=== PATIENT | female | born 1990 | race African-American/Black ===

== ENCOUNTER 2016-04-27 09:13 | Day surgery (SDC) | payer MEDICAID ==
[~2016-04-27] VITALS: Ht 154.9 cm; Wt 50.0 kg
[2016-04-27 10:08] LABS: HEMATOCRIT 33.4 % (36.0-48.0); HEMOGLOBIN 10.9 g/dL (12-16); MCH 26.3 pg (26.0-34.0); MCHC 32.6 g/dL (31.0-37.0); MCV 80.5 fL (80.0-100.0); MEAN PLATELET VOLUME 10.5 fL (7.4-10.4); RBC 4.15 10x6/uL (4.00-5.40); RDW 15.1 % (11.5-14.5); WBC 6.8 10x3/uL (4.8-10.8)
[2016-04-27] MEDS ORDERED: ZYRTEC10 MG PO (11:36)
[2016-04-27] MEDS ORDERED: FLUTICASONE PRO16 GM NASAL (11:37)
[2016-04-27 11:40] VITALS: BP 118/68; Ht 154.9 cm; Wt 50.0 kg
[2016-04-27 13:23] LABS: HCG SERUM NEGATIVE (NEGATIVE)
--- NOTE | 2016-04-27 19:23 | NUR ---
1600 C/O HEAD ACHE PAIN SCALE OF 6 , 1700 BREWER PAIN SCALE 3 PASS PAIN PILL
--- NOTE | 2016-04-30 14:56 | HP ---
PATIENT: PAULO LUNA MEDICAL RECORD: [id number] ACCOUNT: [id number] LOCATION:[facility] : 89 ADMISSION DATE: 04/27/16 HISTORY AND PHYSICAL EXAMINATION PREOPERATIVE HISTORY AND PHYSICAL HISTORY OF PRESENT ILLNESS: Ms. Luna is a 25-year-old female who has had significant problems with headache, pressure and sinusitis, has been found to have opacified right maxillary sinus and possibly chronic fungal sinusitis and polyps on the right side. She is being admitted for sinus surgery. PAST MEDICAL HISTORY: Otherwise negative. PAST SURGICAL HISTORY: None. CURRENT MEDICATIONS: Flonase and Zyrtec. ALLERGIES: No known drug allergies. PHYSICAL EXAMINATION: GENERAL: Healthy-appearing, developmentally normal. FACE: Normal, symmetric, no lesions. EYES: Sclerae and conjunctivae are normal. EARS: Canals and TMs are normal. NOSE: Normal anterior rhinoscopy. DIAGNOSTIC DATA: CT scan shows opacification and calcified material in the right maxillary sinus as well as polypoid tissue in the nasal cavity. IMPRESSION: Right chronic maxillary sinusitis and nasal polyposis. CT findings suggest possibly chronic fungal sinusitis, but there are other possibilities well. She is being admitted for right nasal polypectomy and middle meatal antrostomy with removal of that material from the right maxillary sinus. TRANSINT:[id number] Voice Confirmation ID: [id number] DOCUMENT ID: [id number] VALDEZ LOPEZ MD at 1456 CC: [id number] DICTATION DATE: 04/25/16 1433 MICA MINER: 04/25/16 1905 [facility] 04/27/16 [facility] [address] [place] [address]
--- NOTE | 2016-04-30 14:57 | OP ---
PATIENT NAME: PAULO DURANT MEDICAL RECORD: [id number] :89 LOCATION:[facility] ADMISSION DATE: SURGEON: VALDEZ MATHIAS MD DATE OF OPERATION: 04/27/2016 PREOPERATIVE DIAGNOSIS: Chronic right maxillary sinusitis and right nasal polyposis. POSTOPERATIVE DIAGNOSIS: Chronic right maxillary sinusitis and right nasal polyposis. PROCEDURE: Right endoscopic nasal polypectomy, right middle meatal antrostomy and right anterior ethmoidectomy. SURGEON: Valdez Mathias MD ANESTHESIA: General orotracheal. BLOOD LOSS: Less than 5 cc. SPECIMENS: Polyps from the right nasal cavity for path, material from the right maxillary sinus for culture and for path. COMPLICATIONS: None. PACKING: None. DISPOSITION: Recovery stable. FINDINGS: Right nasal polyposis filling the entire middle meatus, thick green material consistent with allergic fungal sinusitis involving the right maxillary sinus and ethmoid bulla, the ethmoid sinuses behind that were clear. DESCRIPTION OF PROCEDURE: She was brought to the operating room and placed in supine position, sedated and intubated by anesthesia. The table was turned 90 degrees. She had already been decongested with Afrin preoperatively. Both sides of the nose were examined using a headlight and nasal speculum. The left side looked good. The right side was the infected side. The polypoid tissue in the uncinate, lateral nasal wall and inferior turbinate were injected with a total of about 1-1/2 cc of 1% lidocaine with 1:100,000 epinephrine and 2 Afrin pledgets were placed in the nose. She was positioned, prepped and draped in the usual fashion for sinus surgery. The left side of the nose was examined with 0-degree scope and appeared normal. Inferior middle turbinate, all mucosa was normal. No masses, drainage or polyps. All the pledgets were removed from the right side. The right side was examined. The septum and septal mucosa, and floor of the nose were normal. Inferior turbinate was normal. She had large leathery polypoid tissue filling the entire middle meatus. The inferior aspect of the middle turbinate could be visualized. I could see pass all that and get back into the nasopharynx, which was normal as well. Berna forcep was used to grasp the polypoid tissue emanating from the middle meatus. A large portion of this polypoid tissue was removed and sent for specimen. The microdebrider was brought in and used to trim out all the rest of the polypoid tissue from the middle meatus exposing the maxillary ostia, which obviously had green thick material extruding from it and ethmoid bulla and a good visualization of the lateral aspect of the middle turbinate as well. Once that was done, a large OPERATIVE REPORT [id number] PAULO DURANT curved olive tip suction was inserted into the maxillary ostia and this thick green pasty material was suctioned out and the ostia was opened up somewhat. Then, ____ was put on and the olive tip suction was inserted and the maxillary sinus was evacuated of all the thick green material that was sent for specimen and cultures were obtained of that material as well. Once that was completed, a large curved olive tip suction with 30 cc syringe was used to repeatedly irrigate the right maxillary sinus about 10 times. A 30-degree scope was used to examine it. There was some thickening of the mucosa, some polypoid changes in the sinus, but the sinus was wide open and it was really clean. Then, I noticed from the ethmoid bulla, there was some green material coming out of it. I opened it up with upbiting pediatric forcep and it was full of the same material. The sinus was opened further and large ball of the same green material was removed from that. A microdebrider was used to take down just the very anterior aspect of the ethmoid cavities and the ones behind that were clear. There was no disease behind that ethmoid bulla. Again, the nose was repeatedly irrigated with saline. Some mupirocin was placed in the area. The nasopharynx was suctioned. There was no packing. Counts were correct. Eye exam was normal. She was awakened, extubated, and transported to recovery in good condition. No complications. TRANSINT:[id number] Voice Confirmation ID: [id number] DOCUMENT ID: [id number] VALDEZ MATHIAS MD at 1457 CC: [id number] DICTATION DATE: 04/27/16 1433 RENAL MEDICINE SPECIALIST: 04/27/16 1826 [facility] 04/27/16 [id number] [place] [address]
[2016-05-04 17:12] LABS: AEROBE ID Final report (())
== END 2016-04-27 18:00 | disposition home or self-care (01) ==
LOC: D.OPS 09:13 → D.PAN 12:00 → D.OPS 12:30
PROVIDERS: Anesthesiology; Otolaryngology
DX: J32.0 Chronic maxillary sinusitis (principal); B48.8 Other specified mycoses; J33.0 Polyp of nasal cavity; J32.2 Chronic ethmoidal sinusitis